=== PATIENT | female | born 1955 | race Caucasian/White ===

== ENCOUNTER 2016-11-26 18:36 | Emergency (ER) | payer MEDICAID ==
[~2016-11-26] VITALS: Ht 157.5 cm; Wt 51.7 kg
[~2016-11-26 18:36] MED LIST: ATEN100T44 PO; CHOL200035 PO; HYDR12.55; LIP20 PO; LISI-600 PO; [UNRECOGNIZED DRUG - CODE] PO
--- NOTE | 2016-11-26 18:41 | NUR ---
Patient presented to ER with bleeding to back of head, wrapped with gauze and krelex. Patient denies KO during fall. Blleding easily controlled with pressure.
[2016-11-26 19:00] VITALS: BP 158/100; PULSE 90; RESP 20; TEMP 97.2; O2SAT 100
--- NOTE | 2016-11-26 19:00 | NUR ---
CALLED FOR TRIAGE, PT WAS TAKEN TO RADIOLOGY FOR TESTING
--- NOTE | 2016-11-26 19:40 | NUR ---
Patient to ER bed 2 for evaluation. Side rails up.
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
[2016-11-26] MEDS ORDERED: OMEP40CA33 PO (19:46)
--- NOTE | 2016-11-26 19:55 | NUR ---
ER Dr. Foreman at bedside examining patient.
[2016-11-26] MEDS ORDERED: HYDROcodone/ACETAMIN 5-325 MG TAB (NORCO/ VICODIN) PO ONE (20:00)
[2016-11-26] MEDS ORDERED: ONDANSETRON 4 MG ODT TAB PO ONE (20:00)
[2016-11-26 20:25] VITALS: BP 142/97; PULSE 90; RESP 20; TEMP 98; O2SAT 100
--- NOTE | 2016-11-26 20:25 | NUR ---
Patient given written and verbal discharge instructions and verbalizes understanding. ER MD discussed with patient the results and treatment provided. Patient in stable condition. ID arm band removed. Patient educated on pain management and to follow up with PMD. Pain Scale 2/10. Opportunity for questions provided and answered.
== END 2016-11-26 20:25 | disposition home or self-care (01) ==
LOC: SED 18:36
DX: S01.01XA Laceration without foreign body of scalp, initial encounter (principal); I10 Essential (primary) hypertension; Z88.0 Allergy status to penicillin; V87.8XXA Person injured in other specified noncollision transport accidents involving motor vehicle (traffic), initial encounter; Y93.55 Activity, bike riding; Y92.488 Other paved roadways as the place of occurrence of the external cause; Y99.8 Other external cause status
CPT/HCPCS: 12001; 70450; 99284; Q0162

== ENCOUNTER 2023-07-29 20:54 | Emergency (ER) | payer OTHER, MEDICAID ==
[~2023-07-29] VITALS: Ht 157.5 cm; Wt 57.2 kg
[~2023-07-29 20:54] MED LIST changes: +ATEN-168 PO; -ATEN100T44 PO; -CHOL200035 PO; -LISI-600 PO; +LISI20TA30 PO; +OMEP40CA20 PO; -[UNRECOGNIZED DRUG - CODE] PO
[2023-07-29 21:40] VITALS: BP_SYST 152; PULSE 78; RESP 18; TEMP 97.3; O2SAT 97
[2023-07-29] MEDS ORDERED: KETOROLAC TROMETHAMINE 60 MG/2 ML VIAL IM ONE (22:45)
[2023-07-29] MEDS ORDERED: NAPR-1172 PO (23:34)
[2023-07-29 23:38] VITALS: BP_SYST 152; PULSE 78; RESP 18; TEMP 97.3; O2SAT 97
== END 2023-07-29 23:38 | disposition home or self-care (01) ==
LOC: SED 20:54
DX: S20.211A Contusion of right front wall of thorax, initial encounter (principal); Z88.0 Allergy status to penicillin; I10 Essential (primary) hypertension; Z79.899 Other long term (current) drug therapy; X58.XXXA Exposure to other specified factors, initial encounter; Y93.89 Activity, other specified; Y92.89 Other specified places as the place of occurrence of the external cause; Y99.8 Other external cause status
CPT/HCPCS: 99283; 71100; 96372; J1885

== ENCOUNTER 2024-05-01 09:38 | Emergency (ER) | payer OTHER, MEDICAID ==
[~2024-05-01] VITALS: Ht 157.5 cm; Wt 56.2 kg
[~2024-05-01 09:38] MED LIST changes: +NAPR-1172 PO
[2024-05-01 09:40] VITALS: BP_SYST 178; PULSE 86; RESP 18; TEMP 98.1; O2SAT 99
[2024-05-01] MEDS: cloNIDine HCL 0.2 MG TABLET PO ONE (10:28)
[2024-05-01 10:32] LABS: BASOPHILS % (AUTO) 0.6 % (0.0-2.0); EOSINOPHILS # (AUTO) 0.2 K/uL (0.0-0.4); EOSINOPHILS % (AUTO) 2.5 % (0.0-4.0); HEMATOCRIT 44.9 % (36-48); HEMOGLOBIN 15.5 g/dL (12.0-16.0); LYMPHOCYTES # (AUTO) 1.9 K/uL (1.0-5.5); LYMPHOCYTES % (AUTO) 28.5 % (20.5-51.5); MEAN CORPUSCULAR HEMOGLOBIN 33 pg (27-31); MEAN CORPUSCULAR HGB CONC 35 % (32-36); MEAN CORPUSCULAR VOLUME 96 fL (79.0-98.0); MONOCYTES # (AUTO) 0.5 K/uL (0.0-1.0); MONOCYTES % (AUTO) 8.2 % (1.7-9.3); NEUTROPHILS % (AUTO) 60.2 % (40.0-70.0); PLATELET COUNT (AUTO) 296 K/uL (130-430); RED BLOOD CELL COUNT(AUTO) 4.67 MIL/uL (4.2-6.2); RED CELL DISTRIBUTION WIDTH 12.8 % (9.0-15.0); WHITE BLOOD COUNT (AUTO) 6.7 K/uL (4.8-10.8)
[2024-05-01 10:50] LABS: INR 0.9 (0.8-1.2); PROTHROMBIN TIME 9.9 SECS (9.5-12.5)
[2024-05-01 10:57] LABS: ALANINE AMINOTRANSFERASE 25 U/L (12-78); ALBUMIN 3.4 g/dL (3.4-4.8); ANION GAP 9 (5-15); ASPARTATE AMINOTRANSFERASE 20 U/L (10-37); BILIRUBIN,DIRECT 0.1 mg/dL (0.0-0.3); CARBON DIOXIDE 27 mmol/L (23-29); CHLORIDE 107 mmol/L (98-107); CREATININE 0.85 mg/dL (0.55-1.30); GFR AFRICAN AMERICAN 86 mL/min (>90); GFR NON AFRICAN-AMERICAN 71 mL/min (>90); GLUCOSE 131 mg/dL (74-106); POTASSIUM 3.6 mmol/L (3.5-5.1); SODIUM SERUM 143 mmol/L (136-145); TOTAL BILIRUBIN 0.4 mg/dL (0.0-1.0); TOTAL PROTEIN, SERUM 6.8 g/dL (6.4-8.3); UREA NITROGEN, BLOOD 15 mg/dL (8-21)
[2024-05-01] MEDS ORDERED: CLON0.1T PO (12:22)
[2024-05-01 12:37] VITALS: BP_SYST 142; PULSE 72; RESP 16; TEMP 98.1; O2SAT 98
== END 2024-05-01 12:35 | disposition home or self-care (01) ==
LOC: SED 09:38
DX: R51.9 Headache, unspecified (principal); I16.0 Hypertensive urgency; R42 Dizziness and giddiness; I10 Essential (primary) hypertension; Z88.0 Allergy status to penicillin; Z79.899 Other long term (current) drug therapy; Z79.2 Long term (current) use of antibiotics
CPT/HCPCS: 36415; 70450-TC; 71045; 80053; 80076; 83880; 84484; 85025; 85610; 85730; 93005; 99285